=== PATIENT | female | born 1970 ===

== ENCOUNTER 2016-11-20 05:44 | Inpatient (IN) | payer OTHER ==
--- NOTE | ~2016-11-20 | HP ---
History And Physical [id number] [place]. [address] NAME: APRIL STEVENS : 74 STATUS : ADM IN [facility]#: [id number] AGE: 46 ADM/REG DATE : 11/20/16 MR#: [id number] REPORT SERV DATE: 11/20/16 DICTATED BY: HARSH ADAIR JR. DATE: 11/20/16 REPORT STATUS : Draft TRANSCRIBED BY: ERIN DATE: 11/20/16 DATE OF ADMISSION: 11/20/2016 CHIEF COMPLAINT: Chest pain. HISTORY OF PRESENT ILLNESS: April is a 46-year-old, obese female who presents awakened from sleep with severe crushing substernal chest pressure with some shortness of breath. This prompted ER presentation where she had inferior ST elevation consistent with STEMI. The patient denies prior chest pain like this. She denies palpitations, syncope or presyncope. PAST MEDICAL HISTORY: Hypertension, reactive airway disease, obesity. She denies diabetes, renal insufficiency, or mixed hyperlipidemia. ALLERGIES: PENICILLIN. SOCIAL HISTORY: She does not smoke, drink, or use recreational drugs. FAMILY HISTORY: Significant for father with midlife myocardial infarction and a clotting disorder, possible factor 5 Leiden. The patient was never tested. REVIEW OF SYSTEMS: Prior to the chest pain, she denies sudden weight gain or weight loss, bleeding diathesis, fever or chills. She has high stress and anxiety secondary to work changes at home. PHYSICAL EXAMINATION: VITAL SIGNS: Blood pressure 136/80, heart rate 72, respirations 16. GENERAL: Uncomfortable appearing obese female, but no other distress. HEENT: Anicteric, no scleral injection, no oral lesions. NECK: No JVD, supple, no bruits. LUNGS: Clear to auscultation. No hyperexpansion. CARDIOVASCULAR: Regular rate and rhythm with no murmur, rub or gallop. ABDOMEN: Soft, nontender. Normoactive bowel sounds, no hepatosplenomegaly. EXTREMITIES: No clubbing, cyanosis or edema. SKIN: No visible rashes. NEURO/PSY: Normal affect, alert and oriented x3. MEDICAL DECISION MAKIN. Precordial chest pain with inferior ST elevation consistent with STEMI. STEMI protocol was activated. The patient will be taken emergently to the cardiac catheterization laboratory for coronary angiography and possible percutaneous intervention. The risks were verbally explained and verbally accepted. This is an emergency procedure. 2. Hypertension. We will adjust medicines as needed during this hospital stay. 3. Mixed hyperlipidemia. We will initiate intensive statin therapy with other risk factor modification. History And Physical [address] [address] NAME: APRIL STEVENS : 74 STATUS : ADM IN [facility]#: [id number] AGE: 46 ADM/REG DATE : 11/20/16 MR#: [id number] REPORT SERV DATE: 11/20/16 DICTATED BY: HARSH ADAIR JR. DATE: 11/20/16 REPORT STATUS : Draft TRANSCRIBED BY: ERIN DATE: 11/20/16 RORY/ERIN Harsh Adair Jr., M.D. / [id number] CC: Harsh Adair Jr., M.D.
--- NOTE | ~2016-11-20 | CN ---
Consultation Report [facility] [address] [place]. [address] NAME: CURLY STEVENS : 74 STATUS : ADM IN PAT#: [id number] AGE: 46 ADM/REG DATE : 11/20/16 MR#: [id number] REPORT SERV DATE: 11/21/16 DICTATED BY: JOSE D RODARTE DATE: 11/20/16 REPORT STATUS : Draft TRANSCRIBED BY: MODAdis DATE: 11/20/16 DATE OF CONSULTATION: REASON FOR CONSULTATION: Evaluate for possible hypercoagulable state. HISTORY OF PRESENT ILLNESS: Ms. Stevens is a very pleasant 46-year-old with history of obesity and mitral valve prolapse, who presented to the emergency room with crushing sternal chest pain which radiated up her neck, jaw, and left arm and leg. She was brought to the emergency room where she was diagnosed with a STEMI. She was taken to the engineer geophysical laboratory where she was found to have an occlusion of the distal PLV. She was started on aspirin, Plavix, and heparin. She states that her father has a history of factor V Leiden, and he had PEs in his 20s and then a large DVT in his 50s. She states that she also had a cousin who in his 20s of multiple PEs, and she has multiple paternal aunts who have a clotting disorder that is different from her father's but she is unsure what type. She does not smoke or use any oral contraceptives. PAST MEDICAL HISTORY: Significant for history of mitral valve prolapse and a history of migraines. She denies any hypertension or elevated cholesterol. FAMILY HISTORY: As above. 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 She is . She has 2 children ages 20 and 17. With these pregnancies, she had no difficulty with miscarriages or blood clots. She again denies any tobacco or alcohol. PHYSICAL EXAMINATION: GENERAL: She is a well-developed, well-nourished female in no acute distress. Her blood pressure is 96/55. Her pulse is 91. Her O2 sats are 92%. Respiratory rate is 22. She is awake, alert, and oriented x3. LUNGS: Clear to auscultation. HEART: Regular rate and rhythm without murmur, gallop, or rub. ABDOMEN: Soft, nontender, and nondistended. EXTREMITIES: She has no peripheral edema. NEUROLOGIC: Nonfocal. LABORATORY DATA: Her lab work reveals a white count of 13.8, hemoglobin of 14, platelet count of 339, PTT of 26, and INR of 1. Her most recent troponin was elevated at 24. ASSESSMENT AND PLAN: Given her cardiac event at such a young age without any significant risk factors as well as a question of occlusion of her PLV, I think it is reasonable to rule out a clotting disorder. I think it is very reasonable to do a hypercoagulable workup. I would recommend discharging her on Eliquis. We can continue her workup as an outpatient, I can see her back in 2 weeks to review these results. I would switch her from heparin to Eliquis when we feel like she is clinically stable. Consultation Report [id number] [facility] [place]. [address] NAME: CURLY STEVENS : 74 STATUS : ADM IN [facility]#: [id number] AGE: 46 ADM/REG DATE : 11/20/16 MR#: [id number] REPORT SERV DATE: 11/21/16 DICTATED BY: JOSE D RODARTE DATE: 11/20/16 REPORT STATUS : Draft TRANSCRIBED BY: ERIN DATE: 11/20/16 Thank you very much for the consultation. RHIANNON/ERIN Jose D [address] M.D. / [id number] CC: Satish Becker Jr., M.D.
[2016-11-20 05:55] LABS: BASOPHILS 0.3 %; BASOPHILS ABSOLUTE 0.04 10/3/uL (0.0-0.16); EOSINOPHILS ABSOLUTE 0.28 10/3/uL (0.0-0.53); IMMATURE GRANULOCYTES 0.5 %; IMMATURE GRANULOCYTES ABSOLUTE 0.07 10/3/uL (0.0-0.11); LYMPHOCYTES 26.2 %; LYMPHOCYTES ABSOLUTE 3.62 10/3/uL (0.67-4.30); MEAN PLATELET VOLUME 8.9 fL (9.2-13.0); MONOCYTES 7.8 %; MONOCYTES ABSOLUTE 1.08 10/3/uL (0.21-1.20); NEUTROPHILS 63.2 %; NEUTROPHILS ABSOLUTE 8.74 10/3/uL (2.02-8.40); PLATELET COUNT 339 10/3/uL (150-400); RBC DISTRIBUTION WIDTH 13.6 % (12.0-16.0); RED CELL COUNT 4.67 10/6/uL (4.0-5.6); WHITE BLOOD CELLS 13.8 10/3/uL (4.5-10.5)
[2016-11-20 05:56] LABS: HEMATOCRIT 42.5 % (36.0-48.0); MANUAL DIFF NO %; MEAN CORPUS HGB CONC 32.9 g/dL (32.0-36.0)
[2016-11-20 06:03] LABS: PROTIME (NOT ORD) 12.7 SEC (12.0-14.5)
[2016-11-20 06:13] LABS: BUN (BLOOD UREA NITROGEN) 12 MG/DL (6-23); CALCIUM, SERUM 9.3 MG/DL (8.5-10.4); CHEST PAIN PROFILE TAT 0 Hrs 24 Mins; CHLORIDE, SERUM 106 MMOL/L (96-112); CO2 (CARBON DIOXIDE) 25 MMOL/L (24-34); CREATININE 0.85 MG/DL (0.55-1.02); GFR AFRICAN AMERICAN 97 ML/MIN (>=60); GFR NON AFRICAN AMERICAN 83 ML/MIN (>=60); GLUCOSE, SERUM 97 MG/DL (60-99); SODIUM, SERUM 142 MMOL/L (135-148); TROPONIN I <0.02 NG/ML (<0.05)
[2016-11-20] MEDS ORDERED: MAXALT10 MG PO (14:35)
[2016-11-20] MEDS ORDERED: FIORICET 50-301 EACH PO (14:35)
[2016-11-21 05:15] LABS: BASOPHILS 0.3 %; BASOPHILS ABSOLUTE 0.04 10/3/uL (0.0-0.16); EOSINOPHILS ABSOLUTE 0.23 10/3/uL (0.0-0.53); HEMATOCRIT 38.7 % (36.0-48.0); HEMOGLOBIN 12.3 g/dL (12.0-16.0); IMMATURE GRANULOCYTES 0.4 %; IMMATURE GRANULOCYTES ABSOLUTE 0.05 10/3/uL (0.0-0.11); LYMPHOCYTES 24.7 %; LYMPHOCYTES ABSOLUTE 2.84 10/3/uL (0.67-4.30); MEAN CORPUS HGB CONC 31.8 g/dL (32.0-36.0); MEAN CORPUSCULAR HEMOGLOB 30.1 pg (26.0-34.0); MEAN PLATELET VOLUME 8.9 fL (9.2-13.0); MONOCYTES 8.3 %; MONOCYTES ABSOLUTE 0.96 10/3/uL (0.21-1.20); NEUTROPHILS 64.3 %; NEUTROPHILS ABSOLUTE 7.38 10/3/uL (2.02-8.40); PLATELET COUNT 289 10/3/uL (150-400); RBC DISTRIBUTION WIDTH 13.7 % (12.0-16.0); RED CELL COUNT 4.09 10/6/uL (4.0-5.6); WHITE BLOOD CELLS 11.5 10/3/uL (4.5-10.5)
[2016-11-21 05:18] LABS: MANUAL DIFF NO %; MEAN CORPUSCULAR VOLUME 94.6 fL (80-100)
[2016-11-21 05:37] LABS: BUN (BLOOD UREA NITROGEN) 10 MG/DL (6-23); CALCIUM, SERUM 8.6 MG/DL (8.5-10.4); CHLORIDE, SERUM 106 MMOL/L (96-112); CHOL/HDL RATIO(NOT ORDER) 2.5 (0-5); CHOLESTEROL 113 MG/DL (< 200); CO2 (CARBON DIOXIDE) 26 MMOL/L (24-34); CREATININE 0.63 MG/DL (0.55-1.02); GFR AFRICAN AMERICAN 126 ML/MIN (>=60); GFR NON AFRICAN AMERICAN 109 ML/MIN (>=60); GLUCOSE, SERUM 119 MG/DL (60-99); HDL CHOLESTEROL 46 MG/DL (> 49); LDL CHOLESTEROL 47 MG/DL (< 130); NON-HDL CHOLESTEROL 67 MG/DL (< 160); POTASSIUM, SERUM 3.7 MMOL/L (3.5-5.3); SODIUM, SERUM 142 MMOL/L (135-148); TRIGLYCERIDE 102 MG/DL (< 150)
[2016-11-22 06:24] LABS: BUN (BLOOD UREA NITROGEN) 11 MG/DL (6-23); CHLORIDE, SERUM 107 MMOL/L (96-112); CO2 (CARBON DIOXIDE) 27 MMOL/L (24-34); CREATININE 0.59 MG/DL (0.55-1.02); GFR AFRICAN AMERICAN 129 ML/MIN (>=60); GFR NON AFRICAN AMERICAN 111 ML/MIN (>=60); GLUCOSE, SERUM 101 MG/DL (60-99); POTASSIUM, SERUM 4.1 MMOL/L (3.5-5.3); SODIUM, SERUM 141 MMOL/L (135-148)
[2016-11-22] MEDS ORDERED: COREG3 PO (09:57)
[2016-11-22] MEDS ORDERED: PLAVIX PO (09:57)
[2016-11-22] MEDS ORDERED: LIPITOR40 PO (09:58)
[2016-11-22] MEDS ORDERED: ELIQUIS 5 MG TAB5 MG PO (10:00)
[2016-11-22] MEDS ORDERED: ASAB PO (10:01)
[2016-11-25 14:58] LABS: ANTI-CARDIOLIPIN ANTIBODY IGA 2 CU (0-20)
== END 2016-11-22 11:25 | disposition home or self-care (01) | DRG 281 ==
LOC: ER 05:44 → SSU2 05:51 → CCU 07:17 → 5NO 11-21 10:48
PROVIDERS: Internal Medicine Cardiovascular Disease; Specialist
PROC: 4A023N7 Measurement of Cardiac Sampling and Pressure, Left Heart, Percutaneous Approach (ICD-10-PCS; principal; 2016-11-20)
PROC: B2151ZZ Fluoroscopy of Left Heart using Low Osmolar Contrast (ICD-10-PCS; 2016-11-20)
PROC: B2111ZZ Fluoroscopy of Multiple Coronary Arteries using Low Osmolar Contrast (ICD-10-PCS; 2016-11-20)
DX: I21.19 ST elevation (STEMI) myocardial infarction involving other coronary artery of inferior wall (principal); D68.69 Other thrombophilia; I10 Essential (primary) hypertension; I25.118 Atherosclerotic heart disease of native coronary artery with other forms of angina pectoris; I34.1 Nonrheumatic mitral (valve) prolapse; E78.2 Mixed hyperlipidemia; F41.9 Anxiety disorder, unspecified; Z88.0 Allergy status to penicillin; E66.9 Obesity, unspecified; Z68.38 Body mass index [BMI] 38.0-38.9, adult
CPT/HCPCS: 71275; 80048; 80061; 81240; 81241; 82962; 83735; 84484; 85025; 85347; 85610; 85730; 86147; 93005; 93458; 93970; 99152; 99153; 99285; A9270-GY; C1769; C1887; C1894; C8929; J0583; J2250; J2270; J2405; J3010; Q9957; Q9967